=== PATIENT | female | born 1960 | race Two or more races ===

== ENCOUNTER 2024-10-28 15:02 | Emergency (ER) | payer OTHER, MEDICAID ==
[~2024-10-28] VITALS: Ht 157.5 cm; Wt 84.0 kg
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
[2024-10-28 21:00] VITALS: BP 141/75; PULSE 64; RESP 18; TEMP 98.7; O2SAT 97
--- NOTE | 2024-11-01 14:36 | ECG ---
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
== END 2024-10-28 22:47 | disposition home or self-care (01) ==
LOC: EDBD 15:02 → ER 15:11
DX: S16.1XXA Strain of muscle, fascia and tendon at neck level, initial encounter (principal); S20.211A Contusion of right front wall of thorax, initial encounter; E11.9 Type 2 diabetes mellitus without complications; Z85.528 Personal history of other malignant neoplasm of kidney; Z90.49 Acquired absence of other specified parts of digestive tract; Z90.89 Acquired absence of other organs; Z98.890 Other specified postprocedural states; Z88.5 Allergy status to narcotic agent; V43.62XA Car passenger injured in collision with other type car in traffic accident, initial encounter; Y93.I9 Activity, other involving external motion; Y92.488 Other paved roadways as the place of occurrence of the external cause; Y99.8 Other external cause status
CPT/HCPCS: 71046; 72125; 93005